=== PATIENT | female | born 1960 | race Two or more races ===

== ENCOUNTER 2021-09-28 16:24 | Inpatient (IN) | payer OTHER ==
[2021-09-28 19:06] VITALS: BMI 23.8
[2021-09-28] MEDS ORDERED: MAG HYDROX/AL HYDROX/SIMETH 30 ML UNIT-DOSE CUP PO PRN (22:00)
[2021-09-28] MEDS ORDERED: LOPERAMIDE HCL 2 MG CAPSULE PO PRN (22:00)
[2021-09-28] MEDS ORDERED: ONDANSETRON *ODT* 4 MG TABLET SL PRN (22:00)
[2021-09-28] MEDS ORDERED: METHOCARBAMOL 500 MG TABLET PO PRN (22:00)
[2021-09-28] MEDS ORDERED: NICOTINE 10 MG CARTRIDGE (INHALER) IH PRN (22:00)
[2021-09-28] MEDS ORDERED: chlordiazePOXIDE HCL 25 MG CAPSULE PO PRN (22:00)
[2021-09-28] MEDS ORDERED: ACETAMINOPHEN 325 MG TABLET (FP) PO PRN ×2 (22:00)
[2021-09-28] MEDS ORDERED: MENTHOL/PHENOL 1 EACH UD MM PRN (22:00)
[2021-09-28] MEDS ORDERED: BISMUTH SUBSALICYLATE 524 MG/30 ML PO PRN (22:00)
[2021-09-28] MEDS ORDERED: MAGNESIUM CITRATE 300 ML BOTTLE PO PRN (22:00)
[2021-09-28] MEDS ORDERED: IBUPROFEN 400 MG TABLET (FP) PO PRN (22:00)
[2021-09-28] MEDS ORDERED: MAGNESIUM HYDROX 2400MG/30ML ORAL SUSPENSION 30 ML CUP PO PRN (22:00)
[2021-09-28] MEDS ORDERED: chlordiazePOXIDE HCL 25 MG CAPSULE ONE (23:03)
[2021-09-28] MEDS: THIAMINE HCL 100 MG TABLET (FP) PO SCH (23:06)
[2021-09-28] MEDS: MELATONIN 5 MG TABLETS PO SCH (23:06)
[2021-09-28] MEDS: chlordiazePOXIDE HCL 25 MG CAPSULE PO SCH (23:07)
[2021-09-29] MEDS: chlordiazePOXIDE HCL 25 MG CAPSULE PO SCH ×4 (05:37→22:47)
[2021-09-29] MEDS: PRENATAL VITAMINS W/ FOLIC ACID TABLET (FP) PO SCH (10:22)
[2021-09-29] MEDS ORDERED: P-EPHED 60MG/TRIPROLIDI 2.5MG TABLET PO PRN (20:59)
[2021-09-29] MEDS: THIAMINE HCL 100 MG TABLET (FP) PO SCH (22:47)
[2021-09-29] MEDS: MELATONIN 5 MG TABLETS PO SCH (22:47)
[2021-09-30] MEDS: chlordiazePOXIDE HCL 25 MG CAPSULE PO SCH ×4 (07:02→22:29)
[2021-09-30] MEDS: PRENATAL VITAMINS W/ FOLIC ACID TABLET (FP) PO SCH (11:13)
[2021-09-30 14:06] LABS: SARS-CoV-2 NAA Not Detected (Not Detected)
[2021-09-30] MEDS: THIAMINE HCL 100 MG TABLET (FP) PO SCH (22:29)
[2021-09-30] MEDS: MELATONIN 5 MG TABLETS PO SCH (22:29)
[2021-10-01] MEDS ORDERED: chlordiazePOXIDE HCL 10 MG CAPSULE PO PRN
[2021-10-01] MEDS: chlordiazePOXIDE HCL 10 MG CAPSULE PO SCH ×2 (06:12→10:41)
[2021-10-01 08:43] VITALS: BP 116/71; PULSE 98; TEMP 98.3
[2021-10-01] MEDS: PRENATAL VITAMINS W/ FOLIC ACID TABLET (FP) PO SCH (10:41)
[2021-10-01 10:50] LABS: BASO % 0.4 % (0-2.0); EOS % 4.8 % (0-4.5); HEMATOCRIT 39.1 % (32.4-45.2); HEMOGLOBIN 12.5 GM/dL (10.7-15.3); LYMPH % 32.4 % (8-40); MCH 28.9 pg (25.7-33.7); MCHC 31.9 g/dl (32.0-36.0); MEAN CELL VOLUME 90.5 fl (80-96); MEAN PLT VOLUME 9.5 fl (7.5-11.1); MONO % 10.6 % (3.8-10.2); NEUT % 51.8 % (42.8-82.8); PLATELET COUNT 275 10^3/uL (134-434); RBC 4.32 M/mm3 (3.60-5.2); RDW 16.2 % (11.6-15.6); WHITE BLOOD COUNT 5.8 K/mm3 (4.0-10.0)
[2021-10-01 10:54] LABS: ALBUMIN 3.6 g/dl (3.4-5.0); BLOOD UREA NITROGEN 20.6 mg/dL (7-18); CALCIUM 9.2 mg/dL (8.5-10.1)
[2021-10-01 10:57] LABS: CREATININE 0.8 mg/dL (0.55-1.3)
[2021-10-01 10:59] LABS: BILIRUBIN,TOTAL 0.2 mg/dL (0.2-1); TOT PROT 7.5 g/dl (6.4-8.2)
[2021-10-02] MEDS ORDERED: chlordiazePOXIDE HCL 10 MG CAPSULE PO SCH (05:00)
[2021-10-03] MEDS ORDERED: chlordiazePOXIDE HCL 10 MG CAPSULE PO ONE (05:00)
== END 2021-10-01 12:38 | disposition left against medical advice (07) | DRG 770 ==
LOC: YASAS 16:24 → Y3N 22:26
PROVIDERS: ADMIT Allergy & Immunology; ATTEND Allergy & Immunology
PROC: HZ2ZZZZ Detoxification Services for Substance Abuse Treatment (ICD-10-PCS; principal; 2021-09-28)
DX: F10.230 Alcohol dependence with withdrawal, uncomplicated (principal); D50.9 Iron deficiency anemia, unspecified; Z56.0 Unemployment, unspecified; Z59.01 Sheltered homelessness
CPT/HCPCS: 36415; 80053; 85025; 86780; 87811; 93005; 93010; C9803; U0003; U0005